=== PATIENT | male | born 2000 | race Hispanic/Latino ===

== ENCOUNTER 2023-06-08 09:48 | Emergency (ER) | payer SELFPAY ==
[2023-06-08] MEDS ORDERED: Famotidine 20 MG TAB ONE (10:55)
[2023-06-08] MEDS ORDERED: predniSONE 20 MG TAB ONE (10:55)
== END 2023-06-08 11:16 | disposition home or self-care (01) ==
LOC: ERS 09:48
DX: B00.1 Herpesviral vesicular dermatitis (principal); L50.9 Urticaria, unspecified
CPT/HCPCS: 99283; J7512

== ENCOUNTER 2024-05-05 13:47 | Emergency (ER) | payer SELFPAY ==
[2024-05-05] MEDS ORDERED: Bacitracin 1 PK ONE (14:21)
[2024-05-05] MEDS ORDERED: Ketorolac Tromethamine 30 MG (1 mL) VIAL ONE (14:21)
[2024-05-05] MEDS ORDERED: Lidocaine 1% w/Epinephrine 1:100K 20 ML VIAL ONE (14:21)
[2024-05-05] MEDS ORDERED: Boostrix 0.5 ML (Tdap) VIAL (>/=7 yrs of age) ONE (14:25)
== END 2024-05-05 15:20 | disposition home or self-care (01) ==
LOC: ERS 13:47
DX: S61.412A Laceration without foreign body of left hand, initial encounter (principal); Z23 Encounter for immunization; W26.0XXA Contact with knife, initial encounter
CPT/HCPCS: 90471; 90715; 96372; J1885